=== PATIENT | female | born 1975 | race Two or more races ===

== ENCOUNTER 2021-04-14 17:22 | Emergency (ER) | payer OTHER ==
[~2021-04-14] VITALS: Ht 160 cm; Wt 85.3 kg
== END 2021-04-14 21:20 | disposition home or self-care (01) ==
LOC: ER 17:22
DX: S82.61XA Displaced fracture of lateral malleolus of right fibula, initial encounter for closed fracture (principal); W18.39XA Other fall on same level, initial encounter; Y93.89 Activity, other specified; Y92.89 Other specified places as the place of occurrence of the external cause; Y99.8 Other external cause status